=== PATIENT | male | born 1975 | race Caucasian/White ===

== ENCOUNTER 2017-04-16 14:34 | Emergency (ER) | payer SELFPAY ==
[2017-04-16] MEDS ORDERED: Diprivan 20 ML ONE (14:38)
--- NOTE | 2017-04-16 15:30 | RAD ---
LEFT HIP TWO VIEWS 04/16/17 HISTORY: 41-year-old male with history of left hip pain and left hip dislocation. This is supposedly a post reduction study. No prior recent radiographs are available for comparison. No acute fracture or dislocation. 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 IMPRESSION: No fracture or dislocation. POS: [facility]
== END 2017-04-16 16:30 | disposition home or self-care (01) ==
LOC: ERS 14:34
DX: S73.015A Posterior dislocation of left hip, initial encounter (principal); F17.210 Nicotine dependence, cigarettes, uncomplicated; X50.1XXA Overexertion from prolonged static or awkward postures, initial encounter
CPT/HCPCS: 27250; 96360; 99152; J2704

== ENCOUNTER 2017-09-28 19:11 | Emergency (ER) | payer BC, SELFPAY ==
[2017-09-28 20:19] LABS: #Basophils 0.1 thou/uL (0.0-0.2); #Eosinphils 0.1 thou/uL (0.0-0.7); #Lymphocytes 3.3 thou/uL (1.20-3.40); #Monocytes 0.9 thou/uL (0.11-0.59); #Neutrophils 8.2 thou/uL (1.40-6.50); %Basophils 0.6 % (0.0-1.0); %Eosinophils 0.9 % (0.0-10.0); %Lymphocytes 26.1 % (21.0-51.0); %Monocytes 7.2 % (0.0-10.0); %Neutrophils 65.1 % (42.0-75.0); Hemoglobin 16.2 g/dL (14.0-18.0); Mean Corpuscular HGB CONC 34.2 g/dL (32.0-36.0); Mean Corpuscular Hemoglobin 31.2 pg (27.0-31.0); Mean Corpuscular Volume 91.2 fl (80.0-94.0); Mean Platelet Volume 9.2 fL (7.4-10.4); Platelet Count 199 thou/uL (130-400); RBC Distribution Width 12.2 % (11.5-14.5); White Blood Cell (WBC) Count 12.6 thou/uL (4.8-10.8)
[2017-09-28 20:19] LABS: Bilirubin Negative (Negative); Blood, Urine Negative (Negative); Clarity CLEAR (Clear); Glucose, Urine (Dipstick) Negative (Negative); Leukocyte Negative (Negative); Nitrite Negative (Negative); Protein, Urine (Dipstick) Negative (Neg-Trace); Specific Gravity, Urine 1.026 (1.002-1.036)
[2017-09-28 20:44] LABS: ALT (SGPT) 15 U/L (8-55); AST (SGOT) 24 U/L (5-34); Albumin 4.5 g/dL (3.5-5.0); Alkaline Phosphatase 93 U/L (40-150); Anion Gap 13 mmol/L (10-20); BUN (Urea Nitrogen) 18 mg/dL (8.9-20.6); Calc. Creatinine Clearance 0 mL/min (70-130); Calcium 9.5 mg/dL (7.8-10.44); Carbon Dioxide 27 mmol/L (22-29); Chloride 100 mmol/L (98-107); Estimated GFR-MDRD 82; Globulin 2.9 g/dL (2.4-3.5); Glucose 93 mg/dL (70-105); Lipase 22 U/L (8-78); Potassium 3.6 mmol/L (3.5-5.1); Protein, Total 7.4 g/dL (6.0-8.3); Sodium 136 mmol/L (136-145)
[2017-09-28] MEDS ORDERED: Ondansetron ODT 4 MG TAB ONE (21:32)
[2017-09-28] MEDS ORDERED: Ketorolac Tromethamine 60 MG/2 ML VIAL ONE (21:34)
--- NOTE | 2017-09-28 22:22 | ULT ---
GALLBLADDER ULTRASOUND: 09/28/17 HISTORY: Right upper quadrant pain. COMPARISON: 01/07/15. TECHNIQUE: Utilizing a multihertz transducer, sonographic imaging of the right upper quadrant is performed in th e longitudinal transverse plane. FINDINGS: The head and body of the pancreas have a normal echotexture. The tail of the pancreas is obscured. Th e visualized IVC is unremarkable. Hepatic parenchyma has a normal echotexture. No hepatic masses or intrahepatic biliary dilatation. Co ntour of the hepatic margin is maintained. Right hepatic lobe measures 17.2 cm. No hydronephrosis. Right kidney has a normal cortical echotexture and measures 3.8 x 9.8 x 4.5 cm. No sonographic evidence of cholelithiasis, gallbladder wall thickening or pericholecystic fluid. Negati ve Beal's sign. Common bile duct diameter is 0.2 cm. IMPRESSION: No sonographic evidence of cholelithiasis or cholecystitis. POS: [facility]
== END 2017-09-28 23:34 | disposition home or self-care (01) ==
LOC: ERS 19:11
DX: K21.9 Gastro-esophageal reflux disease without esophagitis (principal); F17.210 Nicotine dependence, cigarettes, uncomplicated
CPT/HCPCS: 36415; 76705; 80053; 81003; 83690; 85025; 93005; 96372; J1885; Q0162